=== PATIENT | female | born 1975 | race Caucasian/White ===

== ENCOUNTER 2016-11-28 01:07 | Emergency (ER) | payer MEDICAID, OTHER ==
[~2016-11-28] VITALS: Ht 157.5 cm; Wt 51.8 kg
[~2016-11-28 01:07] MED LIST: DOCU100C8 PO; IBUP-1222 PO; OXYC1TAB7 PO; PREN1TAB56 PO
[2016-11-28 01:16] VITALS: BP 136/91
[2016-11-28] MEDS ORDERED: DEXAMETHASONE 4 MG TABLET ONE (01:41)
[2016-11-28] MEDS ORDERED: ZIPR20CA2 PO (01:45)
[2016-11-28] MEDS ORDERED: DEXAMETHASONE 4 MG TABLET PO ONE (02:00)
== END 2016-11-28 01:53 | disposition home or self-care (01) ==
LOC: ED 01:45
DX: S50.11XA Contusion of right forearm, initial encounter (principal); X58.XXXA Exposure to other specified factors, initial encounter; Y93.89 Activity, other specified; Y92.098 Other place in other non-institutional residence as the place of occurrence of the external cause; Y99.8 Other external cause status
CPT/HCPCS: 99283

== ENCOUNTER 2018-11-27 04:22 | Emergency (ER) | payer MEDICAID ==
[~2018-11-27] VITALS: Ht 157.5 cm; Wt 52.3 kg
[2018-11-27 04:25] VITALS: BP 130/87
== END 2018-11-27 06:29 | disposition home or self-care (01) ==
LOC: ED 05:14
DX: N10 Acute pyelonephritis (principal); Z98.890 Other specified postprocedural states
CPT/HCPCS: 36415; 76700; 80053; 81001; 83690; 84703; 85025; 87086; 99284

== ENCOUNTER 2019-05-15 12:05 | Emergency (ER) | payer MEDICAID ==
[~2019-05-15] VITALS: Ht 157.5 cm; Wt 52.8 kg
[~2019-05-15 12:05] MED LIST changes: +DOCU100C33 PO; -DOCU100C8 PO; +ZIPR20CA2 PO
[2019-05-15 12:09] VITALS: BP 107/79
[2019-05-15] MEDS ORDERED: ALBUTEROL/IPRATROPIUM 2.5MG/0.5MG, 3 ML NPPB ONE (12:30)
[2019-05-15] MEDS ORDERED: ALBUTEROL/IPRATROPIUM 2.5MG/0.5MG, 3 ML ONE (12:39)
== END 2019-05-15 13:01 | disposition home or self-care (01) ==
LOC: ED 12:50
DX: J45.31 Mild persistent asthma with (acute) exacerbation (principal); B34.9 Viral infection, unspecified
CPT/HCPCS: 71046; 94640; 99283; J7512; J7620

== ENCOUNTER 2019-12-26 19:31 | Emergency (ER) | payer MEDICAID ==
[~2019-12-26] VITALS: Ht 160 cm; Wt 51.4 kg
[2019-12-26] MEDS ORDERED: MORPHINE SULFATE 4 MG/ML, 1ML ONE (20:14)
[2019-12-26] MEDS ORDERED: ONDANSETRON 2MG/ML, 2ML ONE (20:14)
--- NOTE | 2019-12-26 20:26 | NUR ---
REPORT GIVEN TO FERMÍN SHAW
--- NOTE | 2019-12-26 20:29 | NUR ---
PT TRANSPORTED TO [facility].
[2019-12-26] MEDS ORDERED: MORPHINE SULFATE 4 MG/ML, 1ML IVPush ONE (20:30)
[2019-12-26] MEDS ORDERED: ONDANSETRON 2MG/ML, 2ML IVPush ONE (20:30)
--- NOTE | 2019-12-26 20:31 | NUR ---
PT RESTING ON GURNEY IN NAD, REPORTS PAIN HAS SUBSIDED. VSS. FALL PRECAUTIONS IN PLACE. CALL LIGHT WITHIN REACH.
[2019-12-26] MEDS ORDERED: KETOROLAC 30 MG/1 ML ONE (20:47)
[2019-12-26 20:49] LABS: BASOPHILS # (AUTO) 0.02 x10^3/uL (0-0.1); BASOPHILS % (AUTO) 0 % (0-1); EOSINOPHILS # (AUTO) 0.06 x10^3/uL (0-0.4); EOSINOPHILS % (AUTO) 1 % (1-7); LYMPHOCYTES # (AUTO) 1.49 x10^3/uL (1-3.4); LYMPHOCYTES % (AUTO) 14 % (22-44); MD NO; MEAN CORPUSCULAR HEMOGLOBIN 30.3 pg (27.0-34.8); MEAN CORPUSCULAR HGB CONC 32.7 g/dL (32.4-35.8); MEAN CORPUSCULAR VOLUME 92.5 fL (80-100); MEAN PLATELET VOLUME 8.9 fL (7.4-10.4); MONOCYTES # (AUTO) 1.11 x10^3/uL (0.2-0.8); MONOCYTES % (AUTO) 11 % (2-9); NEUTROPHILS # (AUTO) 7.81 x10^3/uL (1.8-6.8); NEUTROPHILS % (AUTO) 75 % (42-75); PLATELET COUNT 217 x10^3/uL (130-400); RED BLOOD COUNT 4.59 x10^6/uL (3.82-5.3); RED CELL DISTRIBUTION WIDTH 12.8 % (9.6-15.2)
[2019-12-26] MEDS ORDERED: KETOROLAC 30 MG/1 ML IVPush ONE (21:00)
[2019-12-26 21:01] LABS: ALBUMIN 3.8 g/dL (3.4-5.0); ANION GAP 5 mmol/L (5-15); CALCIUM 9.6 mg/dL (8.5-10.1); CHLORIDE 107 mmol/L (98-107)
[2019-12-26 21:07] LABS: ALANINE AMINOTRANSFERASE 16 U/L (12-78); ALKALINE PHOSPHATASE 60 U/L (45-117); BILIRUBIN,TOTAL 0.8 mg/dL (0.2-1.0); CREATININE 0.79 mg/dL (0.55-1.02)
[2019-12-26 21:26] VITALS: BP 120/75
== END 2019-12-26 22:19 | disposition home or self-care (01) ==
LOC: ED 20:00
DX: M47.814 Spondylosis without myelopathy or radiculopathy, thoracic region (principal); R11.0 Nausea; R06.02 Shortness of breath; R10.13 Epigastric pain; R00.0 Tachycardia, unspecified; R07.9 Chest pain, unspecified; J45.909 Unspecified asthma, uncomplicated; F17.210 Nicotine dependence, cigarettes, uncomplicated
CPT/HCPCS: 36415; 71046; 80053; 83690; 84703; 85025; 85379; 93005; 96374; 96375; 99285; J1885; J2270; J2405